=== PATIENT | male | born 1975 | race Caucasian/White ===

== ENCOUNTER 2025-02-14 01:51 | Emergency (ER) | payer BC, SELFPAY ==
--- OUTSIDE RECORDS SUMMARY | 2025-02-14 01:53 | XMS_ITS | Clinical Summary ---
Author Organization [facility] Address [address] [place] [id number] Care Team Providers Care Shoe Puller Name Role Phone Clinic, No Pcp Or Primary Care Provider Unavaila ble Allergies No known active allergies Medications LORazepam (ATIVAN) 0.5 mg tabIndications:Fe ar of flying TAKE 1 TABLET(0.5 MG) BY MOUTH THREE TIMES DAILY 5 Tablet 12/30/19 22 Active dextroamphetamine -amphetamine (Adderall XR) 20 mg Extended-Release capsuleIndication s:Attention deficit hyperactivity disorder (ADHD), predominantly inattentive type Take 1 Capsule (20 mg) by mouth once daily. 30 Capsule 11/25/19 24 Active dextroamphetamine -amphetamine (ADDERALL) 10 mg tabletIndications :Attention deficit hyperactivity disorder (ADHD), predominantly inattentive type Take 1 Tablet (10 mg) by mouth once daily. 30 Tablet 02/12/20 24 Active dextroamphetamine -amphetamine (ADDERALL) 10 mg tabletIndications :Attention deficit hyperactivity disorder (ADHD), predominantly inattentive type Take 1 Tablet (10 mg) by mouth once daily. 30 Tablet 03/13/20 24 Active sildenafil citrate (VIAGRA) 100 mg tabletIndications :Other male erectile dysfunction TAKE 1 TABLET BY MOUTH 30MIN TO 4HRS PRIOR TO SEXUAL ACTIVITY MAX 1 TABLET PER 24HRS 15 Tablet 5 07/18/20 24 Active dextroamphetamine -amphetamine (Adderall XR) 20 mg Extended-Release capsuleIndication s:Attention deficit hyperactivity disorder (ADHD), predominantly inattentive type Take 1 Capsule (20 mg) by mouth once daily. 30 Capsule 10/14/19 25 Active dextroamphetamine -amphetamine (Adderall XR) 20 mg Extended-Release capsuleIndication s:Attention deficit hyperactivity disorder (ADHD), predominantly inattentive type Take 1 Capsule (20 mg) by mouth once daily. 30 Capsule 09/14/19 25 Active dextroamphetamine -amphetamine (ADDERALL) 10 mg tabletIndications :Attention deficit hyperactivity disorder (ADHD), predominantly inattentive type Take 1 Tablet (10 mg) by mouth once daily. 30 Tablet 10/14/19 25 Active dextroamphetamine -amphetamine (ADDERALL) 10 mg tabletIndications :Attention deficit hyperactivity disorder (ADHD), predominantly inattentive type Take 1 Tablet (10 mg) by mouth once daily. 30 Tablet 09/14/19 25 Active dextroamphetamine -amphetamine 10 mg tabletIndications :Attention deficit hyperactivity disorder (ADHD), predominantly inattentive type TAKE ONE TABLET BY MOUTH EVERY DAY 30 Tablet 01/30/20 25 Active dextroamphetamine -amphetamine 20 mg Extended-Release capsuleIndication s:Attention deficit hyperactivity disorder (ADHD), predominantly inattentive type TAKE ONE CAPSULE BY MOUTH EVERY DAY. 30 Capsule 01/30/20 25 Active dextroamphetamine -amphetamine (AdderalL) 10 mg tabletIndications :Attention deficit hyperactivity disorder (ADHD), predominantly inattentive type Take 1 Tablet (10 mg) by mouth once daily. 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 Hypermetropia 11/02/2012 Encounters Date Type Department Care Team Description 01/29/[address] [address] Marcus Chahal MD Refill Request (Dextroamphetamine-am phetamine, Dextroamphetamine-amp hetamine) 12/25/[address] [address] Marcus Chahal MD Refill Request (Dextroamphetamine-am phetamine) 11/23/2024 11:00 AM CDT Office Visit [facility] [address] [place] [address] Sonal Fuentes, OD Eye Exam (CEE) 11/22/2024 Travel from Last 3 Months Immunizations Immunization Administration Dates Next Due COVID-19 vaccine (Pfizer-Bio[employer] 30mcg/0.3mL) P F, MDV 01/09/2021,12/19/2020 Influenza, IIV3 (Age >=3 years) 07/16/2013,11/06 Influenza, IIV4 08/15/2018 Td (Age >=7 Years) 11/05/2005 Td, Preservative Free (age >= 7 Years) 6 Tdap 08/02/2018 Family History Medical History Relation Name Comments Cancer Maternal Aunt lung Heart Disease Maternal Grandfather Genitourinary Disease Paternal Grandfather kidney stones of kidney failure Genitourinary Disease Sister 3 kidney stones Genitourinary Disease Sister 4 kidney stones Good Health Son 2 Anesthesia Problem No Family History Relation Name Status Comments Father Alive Maternal Aunt Maternal Grandfather Alive Maternal Grandmother Alive Mother Alive Paternal Grandfather Paternal Grandmother Alive Sister 1 Alive Sister 2 Alive Sister 3 Sister 4 Son 1 Alive Son 2 Social History Tobacco Use Types Packs/Day Years Used Date Smoking Tobacco: Former Cigarettes Q uit: 02/17/2013 Smokeless Tobacco: Never Tobacco Cessation:Counseling Given: Not Answered Alcohol Use Standard Drinks/Week Comments Yes 0 (1 standard drink = 0.6 oz pur e alcohol) once a month PHQ-2 Answer Date Recorded PHQ-2 TOTAL SCORE 0 05/24/2023 Financial Resource Strain Answer Date R ecorded Difficulty of Paying Living Expenses Not on file 09/12/2021 Difficulty of Paying Living Expenses Not on file 09/12/2021 Sex and Gender Information Value Date Recorded Sex Assigned at Not on file Legal Sex 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 Gender Identity Not on file Sexual Orientation Not on file Occupation Industry Job Start Date Job End Date Not on file Not on file Not on file 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 on 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 Not on file Not on file Not on file Obstetrics History Last Filed Vital Signs Vital Sign Reading Time Taken Comments Blood Pressure 120/70 09/14/2024 4:23 PM REGIONAL ENGINEER Pulse 78 09/14/2024 4:23 PM REGIONAL ENGINEER Temperature 36.4 C (97.5 F) 10/05/2021 1:15 PM REGIONAL ENGINEER Respiratory Rate 13 10/05/2021 1:15 PM REGIONAL ENGINEER Oxygen Saturation 95% 05/24/2023 3:50 PM CDT Inhaled Oxygen Concentration - - Weight 78 kg (172 lb) 09/14/2024 4:23 PM REGIONAL ENGINEER Height 175.3 cm (5' 9) 09/14/2024 4:23 PM REGIONAL ENGINEER Body Mass Index 25.4 09/14/2024 4:23 PM REGIONAL ENGINEER Plan of Treatment Health Maintenance Due Date Last Done Comments HIV for age 15-65 1988 Hepatitis C screening for ag e 18-79 1991 Hepatitis B series for 19+ ( 1 of 3 - 19+ 3-dose series) 1992 Colonoscopy through age 75 2018 Lipids for age 45-75 08/02/2023 08/02/2018 Pneumococcal series for age 50+ (1 of 1 - PCV) 2023 Zoster (shingles) series for age 50+ (1 of 2) 2023 COVID-19 vaccine series ( season) 2024 08/21/2021, 01/09/2021, 12/19/2020 Depression screening for age 12+ 05/24/2024 05/24/2023, 01/17/2023, 02/27/2021 Influenza Vaccine (Season Ended) 2025 08/15/2018, 07/16/2013, 11/06/2010 BMI (ht and wt on same day) for age 18+ 09/14/2025 09/14/2024, 04/06/2024, 11/30/2023, Additional history exists Tetanus booster 08/02/2028 08/02/2018, 10/14, 11/05/2005 Tdap Completed 08/02/2018 Medical Devices Implanted Type Area Product Safety Coordinator Device Identifier Shelf Expiration Date Model / Serial / Lot Stent Uret [id number] Silhouette - [id number] Implanted:Qty: 1 on 10/05/2021 by Walter Vail MD at [facility] Right: Ureter [employer] [place] 03/11/2022 [id number] / / [id number] Stent Uret [id number] Silhouette - [id number] Implanted:Qty: 1 on 10/05/2021 by Walter Vail MD at [facility] Left: [employer] [id number] / / [id number] Procedures Procedure Name Priority Date/Time Associated Diagnosis Comments LIPID PANEL Routine 08/02/2018 12:38 PM REGIONAL ENGINEER Lipid screening from Last 3 Months or Most Recently Relevant to Health Maintenance Results * (ABNORMAL) LIPID PANEL (08/02/2018 12:38 PM REGIONAL ENGINEER) CHOLESTEROL,TOTAL 208(H) 100 - 199 mg/dL 08/02/2018 1:15 PM REGIONAL ENGINEER [facility] TRIGLYCERIDES 201(H) <150 mg/dL 08/02/2018 1:15 PM REGIONAL ENGINEER [facility] HDL CHOLESTEROL 40(L) >40 mg/dL 8 1:15 PM REGIONAL ENGINEER [facility] NON-HDL CHOLESTEROL 168(H) <145 mg/dl 08/02/2018 1:15 PM REGIONAL ENGINEER [facility] CHOL/HDL RATIO 5.20(H) <4.50 08/02/2018 1:15 PM REGIONAL ENGINEER [facility] LDL CHOLESTEROL 128 <=130 mg/dL 08/02/2018 1:15 PM REGIONAL ENGINEER [facility] PROVIDER ORDERED STATUS RANDOM 08/02/2018 1:15 PM REGIONAL ENGINEER [facility] Blood BLOOD SPECIMEN / Unknown Venipuncture / Unknown 08/02/2018 12:38 PM REGIONAL ENGINEER 08/02/2018 12:38 PM REGIONAL ENGINEER Aram Chamberlain MD CHEMISTRY Final Result [facility] [address] [place] [address] from Last 3 Months or Most Recently Relevant to Health Maintenance Insurance [facility] [employer] Advance Directives * Full Code (Latest Code Status on File) Date Activated Date Inactivated Comments 10/05/2021 9:38 AM 10/05/2021 3:33 PM Question Answer Comments Code Status Discussion: Not Discussed Care Teams Shoe Puller Relationship Specialty Start Date End Date Clinic, No Pcp Or . PCP - General 05/24/23
--- OUTSIDE RECORDS SUMMARY | 2025-02-14 01:54 | XMS_ITS | Data Portability ---
Author Organization [facility] Address [address] [place] [address] Care Team Providers Care Care Navigator Name Role Phone [facility] Primary Care Provider [phone] Assessment Encounter Date Assessment Date Assessment LastModified by Organization Details LastModified Time 10/12/2021 10/12/2021 46 year old male with bilateral nephrolithiasis now s/p URS with laser lithotripsy. [email or web address] Not available 10/12/2021 10:06:16 Plan of Treatment Reminders Order Date Submit Date Provider Last Modified By Organization Details Last Modified Time Details Appointments None record ed. Lab None record ed. Referral None record ed. Procedures None record ed. Surgeries None record ed. Imaging None record ed. Medication Orders None record ed. Patient TargetsNo targets recorded. Patient InstructionsNo instructions recorded. Reason for Referral None Reported. Results Created Date Observation Date Name Description Value Unit Range Abnormal Flag Note LastModifiedBy Organization Detail LastModifiedTime Result Notes None recorded. Procedures Surgical History Date Name Laterality Status Provider Name and Address Organization Details Recorded Time 2 STEFFI Stent Removal completed Walter Vail MD [address], [place], [address], [place] [facility] 10/12/2021 10:05:34 2 CYSTOSCOPY, WITH URETEROSCOPY, WITH LITHOTRIPSY, WITH INSERTION OF URETERAL STENT (SURG) completed Walter Vail MD [address], [place], [address], [place] [facility] 10/12/2021 14:27:52 Imaging Results None recorded. Procedure Notes None recorded. Medical Equipment None Reported. Allergies No known drug allergies Medications Name Sig Start Date Stop Date Status Note LastModified by Organization Details LastModified Time oxybutynin chloride ER 10 mg tablet,exte nded release 24 hr active Not Available Not Available Not Available phenazopyri dine 200 mg tablet 10/12 completed Not Available Not Available Not Available sildenafil 100 mg tablet TAKE 1 TABLET BY MOUTH ONCE DAILY IF NEEDED FOR ERECTILE DYSFUNCTI ON. TAKE 30 MINS TO 4 HOURS BEFORE SEXUAL ACTIVITY. MAX 100 MG/ 24 HOURS active Not Available Not Available No t Available ketorolac 10 mg tablet TAKE 1 TABLET BY MOUTH EVERY 6 HOURS FOR 5 DAYS 10/12 completed Not Available Not Available Not Available lorazepam 0.5 mg tablet 10/12 completed Not Available Not Available Not Available tamsulosin 0.4 mg capsule TAKE 1 CAPSULE BY MOUTH DAILY active Not Available Not Available No t Available oxycodone 5 mg tablet TAKE 1 TABLET BY MOUTH EVERY 4 HOURS active Not Available Not Available No t Available Stimulant Laxative Plus 8.6 mg-50 mg tablet TAKE 1 TABLET BY MOUTH TWICE DAILY NEEDED 10/12 completed Not Available Not Available Not Available Vitals Date Recorded Body height Body mass index (BMI) Body weight Provider Name and Address Organization Details Last Updated DateTime 10/12/2021 175.26 cm 26.6 kg/m2 80837.63 g Anton Okeefe [facility] 10/12/2021 13:52:27 Social History Question Answer Notes LastModified by [employer]Advance Details LastModified Time Tobacco Smoking Status Former Smoker Anton Okeefe [facility] 10/12/2021 13:56:51 What Is Your Level Of Caffeine Consumption? Moderate Information not available 10/12/2021 When Did You Quit Smoking? 6-10yearssinc elastcigarett e Information not available 10/12/2021 What Was The Date Of Your Most Recent Tobacco Screening? 10/12/2021 Information not available 10/12/2021 What Is Your Relationship Status? Information not available 10/12/2021 How Many Years Have You Smoked Tobacco? 15 Information not available 10/12/2021 Sex: Unknown Functional Status Question Answer Note LastModified by Tattvaizat ion Details LastModified Time Do you use any illicit or recreational drugs? No Information not available 10/12/2021 Do you or have you ever used any other forms of tobacco or nicotine? No Information not available 10/12/2021 What is your level of alcohol consumption? Moderate Information not available 10/12/2021 Are you currently employed? Yes Information not available 10/12/2021 Mental Status None recorded. Family History Relationship Description Onset Age of this Age Resolved Age Notes LastModified by Organization Details LastModified Time Mother Family history of breast cancer [email or web address] Not available 2021 13:54:23 Maternal Grandfather Family history of cardiac disorder [email or web address] Not available 2021 13:55:05 Sister Family history of renal stone [email or web address] Not available 09/14 13:55:24 Medical History No medical history recorded. Past Encounters Encounter ID Performer Location Encounter Start Date Encounter Closed Date Diagnosis/Indication Diagnosis SNOMED-CT Code Diagnosis ICD10 Code Diagnosis Note [id number] Walter Vail MD [facility] [address] [place] [address] 10/12/2021 13:48:35 10/14/2021 08:47:59 Kidney stone 13551697 N20.0 - Will complete 24 hour urine and follow up to review results- Stents removed today without issue. Health Concerns Section Related Observation LastModified by Organization Detai ls LastModified Time None Recorded Concern Status LastModified by Organization Details LastModified Time None Recorded Advance Directives Directive None Recorded Payers Insurance Date Sequence Insurance Name Policy Number Policy Godinez Covered Member ID Godinez Member ID Guarantor Name 10/13/[address] [facility] [id number] Alfredo Chapman [id number] Alfredo Chapman Notes Date Note Type Note Provider Name and Address Organization Details Recorded Time 10/12/2021 text/html 46 yoM who follo ws with me in [place] for bilateral nephrolithiasis. Underwent bilateral ureteroscopy with laser lithotripsy. Bilateral stents placed. Here for stent removal. Reports a lot of stent related pain and morbidity, but improved with anticholinergic. Walter Vail MD [address], [place], [address], [facility] [place] [facility] 10/12/2021 14:29:08
--- OUTSIDE RECORDS SUMMARY | 2025-02-14 01:54 | XMS_ITS | Clinical Summary ---
Author Organization [facility] Address [address] [place] [address] Care Team Providers Care Senior Data Warehouse Developer Name Role Phone Unavailable Primary Care Provider Unavailabl e Source Comments Patient records contain information from all sites at [facility]. For routine questions regarding patient records, call [phone] during business hours, M-F 8:00 AM - 5:00 PM Central Time. 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 Gender Identity Not on file Sexual Orientation Not on file Plan of Treatment Health Maintenance Due Date Last Done Comments CT Colonography 1973 Cologuard 1973 Colonoscopy 1973 Colorectal Cancer Screening 1973 FIT 1973 HIV Screening 1973 Hepatitis C Screening 1973 Hepatitis B Vaccines (1 of 3 - 19+ 3-dose series) 1992 Fasting Glucose for Diabetes Screening 03/05/2023 03/05/2020 Lipid (Cholesterol) Screening 08/02/2023 08/02/2018 Pneumococcal vaccine (50+ years) (1 of 1 - PCV) 2023 Zoster Vaccines (1 of 2) 2023 COVID-19 Vaccine ( - 2023-2 5 season) 2024 08/21/2021, 01/09/2021, 12/19/2020 Influenza Vaccine (#1) 2024 8, 07/16/2013, 11/06/2010 Depression Screening (Annual PHQ-2) 09/12/2024 DTaP,Tdap,and Td Vaccines (2 - Td or Tdap) 08/02/2028 08/02/2018, 11/05/2005 IPV Vaccines Aged Out No longer eligi ble based on patient's age to complete this topic Insurance ALEENA SOTO
--- OUTSIDE RECORDS SUMMARY | 2025-02-14 01:54 | XMS_ITS | Data Portability ---
Author Organization [facility] Address [address] [place] [address] Care Team Providers Care Spray Drier Operator Name Role Phone [facility] Primary Care Provider Assessment Encounter Date Assessment Date Assessment LastModified [...] Stent Removal completed Walter Vail MD [address], [place], [address], [place] [facility] 10/12/2021 10:05:34 2 CYSTOSCOPY, WITH URETEROSCOPY, WITH LITHOTRIPSY, WITH INSERTION OF URETERAL STENT (SURG) completed Walter Vail MD [address], [place], [address], [place] [facility] 10/12/2021 14:27:52 Imaging Results None recorded. [...] Updated DateTime 10/12/2021 175.26 cm 26.6 kg/m2 80031.63 g Anton Okeefe [facility] 10/12/2021 13:52:27 Social History Question Answer Notes LastModified by [email or web address] Details LastModified Time Tobacco Smoking Status Former Smoker Anton Okeefe [facility] 10/12/2021 13:56:51 What Is Your Level [...] Functional Status Question Answer Note LastModified by Mobile Roadieiz[employer] ion Details LastModified Time Do you use [...] SNOMED-CT Code Diagnosis ICD10 Code Diagnosis Note [id number] Walter Vail MD [facility] [address] [place] [address] 10/12/2021 13:48:35 10/14/2021 08:47:59 Kidney stone [id number] N20.0 - Will complete 24 hour urine [...] Godinez Member ID Guarantor Name 10/13/[address] [facility] [id number] Alfredo Chapman [id number] Alfredo Chapman Notes Date Note Type Note Provider Name and Address Organization Details Recorded Time 10/12/2021 text/html 46 yoM who follo ws with me in [place] for bilateral nephrolithiasis. Underwent bilateral ureteroscopy with laser lithotripsy. Bilateral stents placed. Here for stent removal. Reports a lot of stent related pain and morbidity, but improved with anticholinergic. Walter Vail MD [address], [place], [address], [facility] [place] [facility] 10/12/2021 14:29:08
[2025-02-14 01:55] VITALS: BP 156/83; PULSE 74; RESP 18; TEMP 36.8; O2SAT 99; BMI 23.7
[2025-02-14 02:02] LABS: Appearance Urine Clear (Clear); Bilirubin Urine Negative (Negative); Blood Urine 3+ (Negative); Color Urine Yellow (Yellow); Glucose Urine Negative (Negative); Ketones Urine Negative (Negative); Leukocyte Esterase Urine Negative (Negative); Nitrite Urine Negative (Negative); Protein Urine Negative (Negative); Urobilinogen Urine 0.2 (0.2-1.0); pH Urine 7.5 (5.0-8.5)
[2025-02-14 02:10] LABS: Squamous Epithelial Cell Urine Few (None-Few); WBC Urine 0-2 (0-5)
--- NOTE | 2025-02-14 02:14 | CRLHL7_ITS ---
For Patients: As a result of the Century Cures Act, medical imaging exams and procedure reports are released immediately into your electronic medical record. You may view this report before your referring provider. If you have questions, please contact your health care provider. INDICATION: Right flank pain. TECHNIQUE: CT abdomen and pelvis without contrast. COMPARISON: None. FINDINGS: Lower chest: Unremarkable. Liver: Normal in size and attenuation. Gallbladder and bile ducts: No stones or inflammation. No biliary ductal dilatation. Spleen: Normal in size. Adrenal glands: Normal in size. No nodules. Pancreas: No inflammation. Kidneys: Bilateral nonobstructive renal calculi, measuring up to 5 mm bilaterally. No hydronephrosis. GI tract: Normal in caliber. No evidence of obstruction. Normal appendix. Lymph nodes: No lymphadenopathy. Vasculature: Abdominal aorta is normal in caliber. Abdominal wall/Omentum/Peritoneum: Unremarkable. No free air or significant free fluid. Pelvis: Unremarkable. Bones: Severe disc degeneration at L5-S1. IMPRESSION: 1. Bilateral nonobstructive nephrolithiasis. No obstructive uropathy. 2. No other acute abdominal or pelvic abnormality on this noncontrast examination. Please note that all CT scans at this facility use dose modulation, iterative reconstruction, and/or weight-based dosing when appropriate to reduce radiation dose to as low as reasonably achievable. Dictated by Abram Garcia MD @ 02/14/2025 2:38:32 AM (Electronically Signed)
--- NOTE | 2025-02-14 02:14 | ED.GENADULT ---
HPI - General Adult General Chief complaint: Flank Pain Stated complaint: kidney stones Time Seen by Provider: 02/14/25 02:02 Source: patient Mode of arrival: ambulatory Limitations: no limitations History of Present Illness HPI narrative: 49-year-old male presents to the emergency department for evaluation of right flank pain. Woke him from sleep at about 12:45 a.m.. Achy, constant accompanied by some mild nausea but no vomiting. Interestingly, pain resolved upon arrival to the ED, lasting about an hour. History of kidney stones in the past. Last was about 4 years ago he says that 1 was 10 mm. It required lithotripsy and stent placement. No stones since but was told that he had several remaining stones at the time. No fever. No dysuria. He has not noticed any amanda hematuria or blood clots. No trauma or injury. Did not try taking any medication prior to coming to ED. Appetite has been normal, no signs of other intra-abdominal issues. Other than the lithotripsy stent placement, no prior history of abdominal surgeries per his report. Past medical history is notable for ADHD, erectile dysfunction. Home meds are if [id number] famotidine, Adderall and occasional use of Viagra. He is a nonsmoker. ROS is notable for the right flank pain only, otherwise denies times 12 systems. Related Data Home Medications ?Medication ?Instructions ?Recorded ?Confirmed dextroamphetamine-amphetamine 10 1 tab PO DAILY 02/14/25 02/14/25 mg tablet dextroamphetamine-amphetamine ER 1 cap PO DAILY 02/14/25 02/14/25 20 mg 24hr capsule,extend release sildenafil 100 mg tablet 100 mg PO DIRECTED 02/14/25 02/14/25 Previous Rx's ?Medication ?Instructions ?Recorded ketorolac 10 mg tablet 10 mg PO Q6H PRN pain 5 days #20 02/14/25 tabs ondansetron 4 mg disintegrating 4 mg PO Q6H PRN nausea and 02/14/25 tablet vomiting #10 tabs tamsulosin 0.4 mg capsule (Flomax) 0.4 mg PO DAILY PRN Kidney stone 02/14/25 passage #10 caps Allergies Allergy/AdvReac Type Severity Reaction Status Date / Time No Known Drug Allergies Allergy Verified 02/14/25 01:[address] [facility] Medical History ADHD ?F90.9 - Attention-deficit hyperactivity disorder, unspecified type (ICD-10) Hypermetropia ?H52.00 - Hypermetropia, unspecified eye (ICD-10) Nephrolithiasis ?N20.0 - Calculus of kidney (ICD-10) Closed fracture of metacarpal bone ?S62.309A - Unspecified fracture of unspecified metacarpal bone, initial encounter for closed fracture (ICD-10) Calculus in urethra ?N21.1 - Calculus in urethra (ICD-10) Surgical History History of excision of pilonidal cyst ?Z98.890 - Other specified postprocedural states (ICD-10) History of cystoscopy ?Z98.890 - Other specified postprocedural states (ICD-10) Social History Smoking Status: Former smoker Second hand tobacco smoke exposure: No How often do you have a drink containing alcohol: never AUDIT-C Alcohol total score: 0 Non-prescribed substance use: denies use Exam Const: Vital Signs, click to edit/add: Vital Signs - 24 hr 02/14/25 01:55 02/14/25 02:16 Temperature 98.2 F 98.2 F Pulse Rate [Right Pulse Oximeter] 74 Respiratory Rate 18 Blood Pressure [Ri ght Upper Arm] 156/83 H Pulse Oximetry 99 Oxygen Delivery Me thod Room Air Documenting provider has reviewed patient's vital signs: yes Common normals: no apparent distress and alert General appearance: cooperative, comfortable and well kempt Other: Good historian. HENMT: Common normals: moist oral mucous membranes and oropharynx normal Mouth: oral and palatal mucosa normal Eye: Common normals: conjunctivae normal General eye: normal appearance of both eyes Conjunctiva: conjunctiva(e) normal Neck & C-Spine: General: normal visual inspection Resp: Common normals: normal respiratory effort and no use of accessory muscles Effort & inspection: able to speak in complete sentences Cardio: Common normals: regular rate, regular rhythm, S1 normal heart sound, S2 normal heart sound and no murmurs Rate: regular rate Rhythm: regular rhythm Heart sounds: S1 normal and S2 normal GI: Common normals: Normal to inspection, nondistended, normoactive bowel sounds present, soft to palpation, no hepatosplenomegaly and no masses Palpation: soft and no hepatosplenomegaly : Other: Mild right CVA tenderness only Extremity: Common normals: normal to inspection and normal capillary refill Neuro: Sensorium/orientation: alert Speech: speech normal Motor exam: no tremor noted Psych: Common normals: thought process normal Appearance: well kempt Attitude: engaged Activity/motor behavior: appropriate eye contact Mood and affect: euthymic mood Thought process: normal thought process Insight: insight good Judgement: judgment good Skin: Common normals: no rashes or lesions noted General skin exam: no rashes or lesions noted Course Course ED Course: 49-year-old male with history of prior kidney stones presenting with right flank pain suspicious for ureterolithiasis. Pain has actually resolved at this point. Based on his history and known prior history of stones, I recommended a couple of different options. He would like to proceed with CT scan but does not need any interventions at this point. I did recommend and dose of oral Toradol, citing that sometimes the pain can cease if the stone is not moving for a short period of time but then can recur. We can hold off on the IV, knowing we have the resources to put 1 in quickly if his symptoms change. He is low risk for chronic kidney disease, severe infection and other complications. Prior labs and notes reviewed. Urinalysis from today reviewed demonstrating hematuria but no signs of infection or other complication. We will hold off on blood draw and IV for now, waiting for results of CT scan. Patient is comfortable with this plan. Conditional workup and treatment if warranted. He thinks he may have passed the stone already. Reevaluation(s) Time of Reevaluation #1: 02:54 Reevaluation #1: Patient continues to feel asymptomatic. I reviewed the CT findings, no signs of a ureterolithiasis but there is some mild hydronephrosis that would suggest that he did in fact just passed a stone as he suspected. He has several other stones including 1 up to 5 mm but no stones that would be too large to pass with his history. Counseled patient on this. I of course let him know that the stones can continue to grow or he can quickly grow another larger 1 at any time. We discussed conservative management with this episode, push fluids, Tylenol and ibuprofen to continue to help the remaining sediment past. We discussed home management for future episodes. He would like to give this a try. Prescriptions provided for Zofran, Toradol, Flomax. We discussed use of these for up to 48 hours if mildly symptomatic to help the stone pass. If he is severely symptomatic, demonstrating signs of infection, severe hematuria he certainly needs to be evaluated right away. Discussed he may also use Tylenol with the above interventions and proper use outlined and discussed. Written instructions provided and alarm symptoms reviewed. He verbalizes understanding and agreement. Vital Signs Vital signs: Initial Vital Signs Temperature 98.2 F 02/14/25 01:55 Temperature Source Temporal Artery Scan 02/14/25 01:55 Pulse Rate 74 02/14/25 01:55 Respiratory Rate 18 02/14/25 01:55 Blood Pressure 156/83 H 02/14/25 01:55 Blood Pressure Mean 107 H 02/14/25 01:55 Blood Pressure Position Sitting 02/14/25 01:55 Pulse Oximetry 99 02/14/25 01:55 Oxygen Delivery Method Room Air 02/14/25 01:55 Vital Signs Temperature 98.2 F 02/14/25 01:55 Pulse Rate 74 02/14/25 01:55 Respiratory Rate 18 02/14/25 01:55 Blood Pressure 156/83 H 02/14/25 01:55 Pulse Oximetry 99 02/14/25 01:55 Oxygen Delivery Method Room Air 02/14/25 01:55 Temperature 98.2 F 02/14/25 02:16 Pulse Rate 74 02/14/25 01:55 Respiratory Rate 18 02/14/25 01:55 Blood Pressure 156/83 H 02/14/25 01:55 Pulse Oximetry 99 02/14/25 01:55 Oxygen Delivery Method Room Air 02/14/25 01:55 Medications Administered Medications: Generic Name Dose Route Start Last Admin Trade Name Freq PRN Reason Stop Dose Admin Ketorolac Tromethamine 10 mg 02/14/25 02:14 02/14/25 02:16 Ketorolac 10 Mg Tablet PO 02/14/25 02:15 10 mg ONCE ONE Administration Medical Decision Making Lab Data Lab results reviewed: Yes I reviewed the patient's lab results Lab results narrative: Hematuria but no features of infection Labs: Lab Results 06/05/25 Range/Units 01:55 Urine Color Yellow (Yellow) Urine Appearance Clear (Clear) Urine pH 7.5 (5.0-8.5) Ur Specific Kite 1.020 (1.000-1.030) Urine Protein Negative (Negative) Urine Glucose (UA) Negative (Negative) Urine Ketones Negative (Negative) Urine Blood 3+ A (Negative) Urine Nitrite Negative (Negative) Urine Bilirubin Negative (Negative) Urine Urobilinogen 0.2 (0.2-1.0) Ur Leukocyte Esterase Negative (Negative) Urine RBC 10-25 A (0-2) Urine WBC 0-2 (0-5) Ur Squamous Epith Cells Few (None-Few) Urine Bacteria None (None) Imaging Data CT scan - abdomen: Attestation: I have reviewed the pertinent imaging results. My impression: No obstructive kidney stone, there is some very mild right hydronephrosis, reflecting that he did likely pass a recent stone. He has lots of stones up in the kidneys. The largest 1 is around 5 mm. Radiologist's impression: IMPRESSION: 1. Bilateral nonobstructive nephrolithiasis. No obstructive uropathy. 2. No other acute abdominal or pelvic abnormality on this noncontrast examination. Please note that all CT scans at this facility use dose modulation, iterative reconstruction, and/or weight-based dosing when appropriate to reduce radiation dose to as low as reasonably achievable. Dictated by Abram Garcia MD @ 02/14/2025 2:38:32 AM Discharge Plan Discharge Clinical Impression: Ureterolithiasis Patient Disposition: Home w/ Parent or Adult Instructions: Ureteral Stones (ED) Additional Instructions: As we discussed, I do think that you are right an your stone has passed. Unfortunately, you do have quite a few smaller stones still up in both of the kidneys. The largest is about 5 mm. What that means is all the ones that you currently have are small enough to pass without intervention. Of course these can grow and change at any time. For now, there is nothing that needs to be done. Any remaining small sediment will pass on its own. It is okay to use Tylenol and/or ibuprofen as needed for continued mild discomfort. Drink lots of fluids to rehydrate the kidneys and help the remaining sediment past. I do think it is important since you are likely to have some repeat episodes, that you have interventions that you can do at home. I would like to provide you with 3 things. The 1st is ondansetron, also known as Zofran. This is an anti nausea medicine. He will take 1 pill up to every 6 hours as needed for nausea. I tell people to take 1 of these right away at the onset of kidney stone like symptoms and then follow that with the remaining 2 interventions, typically about 10 minutes later. The anti nausea medicine does dissolve under the tongue and tends to work fairly quickly, within about 15 minutes. You will then take Toradol which is an anti-inflammatory, nonnarcotic pain medication. You may use 1 pill up to every 6 hours. I will also provide you with supply of Flomax which is a medicine that helps cut down on urinary spasm and also helps dilate open the urinary tract a little bit to make the stone more easy to pass. That medicine is taken once daily only when you are symptomatic to stones. Pick these medications up so you have them on hand for future episode. I tend to recommend that people can use these interventions at home for up to 48 hours and if they are still having severe symptoms of stones, they should be evaluated. They should come in any time if the pain is completely unbearable, there passing very large amounts of blood, or they have symptoms of infection like fever, severe weakness or other complications. No urology follow-up is needed at this time. Activity Level: No Restrictions Discharge Diet: Regular Prescriptions: New ondansetron 4 mg tablet,disintegrating 4 mg PO Q6H PRN (Reason: nausea and vomiting) Qty: 10 0RF ketorolac 10 mg tablet 10 mg PO Q6H PRN (Reason: pain) 5 Days Qty: 20 0RF tamsulosin [Flomax] 0.4 mg capsule 0.4 mg PO DAILY PRN (Reason: Kidney stone passage) Qty: 10 0RF Rx Instructions: Once daily as needed when symptomatic to kidney stones to help pass and cut down on spasm No Action dextroamphetamine-amphetamine 10 mg tablet 1 tab PO DAILY sildenafil 100 mg tablet 100 mg PO DIRECTED dextroamphetamine-amphetamine 20 mg capsule,extended release 24hr 1 cap PO DAILY Follow Up/Referrals: Provider,Not a Local [Primary Care Provider, Family Practice] Stand Alone Forms: [employer] Info Instructions
[2025-02-14 02:16] VITALS: TEMP 36.8
[2025-02-14] MEDS: KETOROLAC 10 MG TABLET PO (02:16)
[2025-02-14 02:59] VITALS: BP 145/84; PULSE 70; RESP 18; TEMP 36.8; O2SAT 99
[2025-02-14 03:00] VITALS: BP 145/84; PULSE 70; RESP 18; TEMP 36.8
== END 2025-02-14 03:00 | disposition home or self-care (01) ==
PROVIDERS: Emergency Provider Family Medicine
DX: N20.1 Calculus of ureter (principal); R11.0 Nausea; Z87.442 Personal history of urinary calculi; Z79.899 Other long term (current) drug therapy
CPT/HCPCS: 74176; 81001; 81003; 99284; A9270